=== PATIENT | female | born 1965 | race Caucasian/White ===

== ENCOUNTER 2016-11-03 07:28 | Day surgery (SDC) | payer BC ==
[2016-11-03] MEDS ORDERED: LIDOCAINE HCL 1% MPF SOL ONE (07:41)
[2016-11-03] MEDS ORDERED: PROPOFOL 500 MG/50 ML EMU IV ONE (07:41)
[2016-11-03 09:33] VITALS: BP 134/72; PULSE 60; RESP 20; TEMP 97; O2SAT 97
== END 2016-11-03 09:45 | disposition home or self-care (01) ==
LOC: SURG 07:28
PROVIDERS: ATTEND Surgery
DX: Z12.11 Encounter for screening for malignant neoplasm of colon (principal); D12.0 Benign neoplasm of cecum; D12.2 Benign neoplasm of ascending colon; D12.3 Benign neoplasm of transverse colon
CPT/HCPCS: 45385; 99001; J2001; J2704